=== PATIENT | male | born 1995 | race African-American/Black ===

== ENCOUNTER 2017-03-13 01:17 | Emergency (ER) | payer OTHER ==
[~2017-03-13] VITALS: Ht 180.3 cm; Wt 70.3 kg
[2017-03-13 03:13] VITALS: BP 116/66
[2017-03-13] MEDS ORDERED: HYDROcodone-ACET 5/325MG TAB PO ONE (03:45)
== END 2017-03-13 03:36 | disposition home or self-care (01) ==
LOC: ER 01:17
DX: S02.2XXA Fracture of nasal bones, initial encounter for closed fracture (principal); W22.8XXA Striking against or struck by other objects, initial encounter; Y93.61 Activity, american tackle football; Y92.89 Other specified places as the place of occurrence of the external cause; Y99.8 Other external cause status
CPT/HCPCS: 70486

== ENCOUNTER 2017-10-28 19:34 | Emergency (ER) | payer OTHER ==
[~2017-10-28] VITALS: Ht 180.3 cm; Wt 77.1 kg
[2017-10-28 21:34] VITALS: BP 109/72
[2017-10-28] MEDS ORDERED: GENTAMICIN OPTH sol 0.3% 5ml EACHEYE ONE (21:45)
== END 2017-10-28 21:59 | disposition home or self-care (01) ==
LOC: ER 19:34
DX: H10.9 Unspecified conjunctivitis (principal)

== ENCOUNTER 2017-10-31 12:43 | Emergency (ER) | payer OTHER ==
[~2017-10-31] VITALS: Ht 180.3 cm; Wt 77.1 kg
[2017-10-31 13:37] VITALS: BP 115/70
== END 2017-10-31 14:47 | disposition home or self-care (01) ==
LOC: ER 12:43
DX: H10.9 Unspecified conjunctivitis (principal)